=== PATIENT | female | born 1970 | race Caucasian/White ===

== ENCOUNTER 2025-02-12 21:22 | Emergency (ER) | payer OTHER ==
[~2025-02-12] VITALS: Ht 160 cm; Wt 90.7 kg
[2025-02-13] MEDS ORDERED: HYDROCODON-ACE1 EA15 PO (00:14)
[2025-02-13] MEDS ORDERED: CLINDAMYCIN HC150 MG PO (00:14)
[2025-02-13 00:17] VITALS: PULSE 91; RESP 16; TEMP 97.7; O2SAT 99
[2025-02-13] MEDS ORDERED: HYDROCODON-ACE1 EA12 PO (05:55)
== END 2025-02-13 00:21 | disposition home or self-care (01) ==
LOC: ER 02-13 00:11
DX: K02.9 Dental caries, unspecified (principal); K04.7 Periapical abscess without sinus; K03.81 Cracked tooth; J45.909 Unspecified asthma, uncomplicated; F43.10 Post-traumatic stress disorder, unspecified; F41.9 Anxiety disorder, unspecified; F17.210 Nicotine dependence, cigarettes, uncomplicated
CPT/HCPCS: 99283